=== PATIENT | female | born 1970 | race Caucasian/White ===

== ENCOUNTER → 2016-12-03 | Outpatient (CLI) | payer BC ==
--- NOTE | 2016-12-03 09:28 | DIAGNOSTIC IMAGING REPORT ---
ULTRASOUND OF THE THYROID GLAND CLINICAL HISTORY: Right-sided neck swelling. COMPARISON STUDY: No priors. TECHNIQUE: Real-time, grayscale, and color flow sonography of the thyroid gland is performed utilizing a high-frequency linear transducer. Images are reviewed in the transverse and longitudinal planes. FINDINGS: Right lobe: The right lobe of the thyroid gland is normal in size and homogeneous in echotexture, measuring 5.3 x 1.2 x 1.6 cm. Left lobe: The left lobe of the thyroid gland is normal in size and homogeneous in echotexture, measuring 4.8 x 1.1 x 1.3 cm. Isthmus: The thyroid isthmus is normal in appearance and measures 0.2 cm in AP diameter. IMPRESSION: Unremarkable sonographic assessment of the thyroid gland. Electronically signed by: Tye Zuluaga M.D. 12/03/2016 9:27 AM Dictated Date/Time: 12/03/2016 9:25 AM
== END | disposition home or self-care (01) ==
LOC: C.ULTR 08:53
PROVIDERS: ATTEND Family Medicine
DX: M54.2 Cervicalgia (principal)

== ENCOUNTER → 2017-02-02 | Outpatient (CLI) | payer BC ==
--- NOTE | 2017-02-02 16:05 | DIAGNOSTIC IMAGING REPORT ---
PELVIC ULTRASOUND CLINICAL HISTORY: Uterine pain. Abnormal bleeding. IUD placement. COMPARISON STUDY: No previous studies for comparison. TECHNIQUE: Transabdominal and transvaginal sonography of the pelvis was performed. FINDINGS: The uterus measures 7.7 x 6.2 x 3.6 cm. Endometrium measures 4 mm in thickness. IUD is appropriately positioned by sonography. The right ovary is normal, measuring 2.4 x 1.6 x 1.7 cm. The left ovary measures 3 x 1.9 x 1.8 cm contains a 1.4 cm complex cyst. There is color flow within each ovary. IMPRESSION: 1. Appropriately positioned IUD by sonography. 2. No significant abnormality within the pelvis by sonography. 3. 1.2 cm left ovarian lesion suggestive of a hemorrhagic/corpus luteal cyst. Electronically signed by: Conner Ventura M.D. 02/02/2017 4:03 PM Dictated Date/Time: 02/02/2017 4:02 PM
== END | disposition home or self-care (01) ==
LOC: C.ULTR 15:07
PROVIDERS: ATTEND Nurse Practitioner Family
DX: N93.8 Other specified abnormal uterine and vaginal bleeding (principal); Z30.431 Encounter for routine checking of intrauterine contraceptive device; N83.202 Unspecified ovarian cyst, left side; N92.1 Excessive and frequent menstruation with irregular cycle

== ENCOUNTER → 2017-02-11 | Outpatient (CLI) | payer BC ==
[2017-02-15 01:44] LABS: CHLAMYDIA TRACH RNA*** NOT DETECTED (NOT DETECTED); GC (NEIS GONORRHOEAE)RNA** NOT DETECTED (NOT DETECTED)
== END | disposition home or self-care (01) ==
LOC: C.LABSPEC 15:21
PROVIDERS: ATTEND Physician Assistant
DX: N92.1 Excessive and frequent menstruation with irregular cycle (principal)

== ENCOUNTER 2017-03-13 02:07 | Emergency (ER) | payer BC ==
[~2017-03-13] VITALS: Ht 185.4 cm; Wt 73.0 kg
[2017-03-13 02:12] VITALS: TEMP 36.8; Ht 185.4 cm; Wt 73.0 kg
[2017-03-13] MEDS ORDERED: IBUPROFEN 600 MG TAB PO STA (02:18)
--- NOTE | 2017-03-13 02:55 | EMERGENCY ROOM VISIT NOTE ---
ED Visit Note First contact with patient: 02:14 CHIEF COMPLAINT: Foot pain HISTORY OF PRESENT ILLNESS: This 46 yo patient presents to the emergency department with friend complaining of swelling and pain in the left foot at rest and worse with weight bearing. The patient twisted it when getting out of bed today . The patient rates the pain as throbbing and 5/10. The patient has had nothing relief of the pain. The patient is able to walk. No numbness or weakness. No ankle pain. There are no lacerations of the foot. The patient is able to move all of their toes and their ankle without pain. no previous fracture to this foot. REVIEW OF SYSTEMS: GENERAL: A 6 system review of systems was completed with positives and pertinent negatives in the HPI. ALLERGIES: none MEDICATIONS: Singulair, reviewed PMH: Asthma SOCIAL HISTORY: No Drug use PHYSICAL EXAM: Vital Signs: Reviewed Nurse's notes, vital signs stable. GENERAL : Pleasant female, in no acute distress, but appears in pain, well-developed, well-nourished. MUSCULOSKELATAL: There is no visual deformity of the left foot. There is no erythema + ecchymosis. There is no warmth. There is tenderness and swelling over the lateral aspect of the left foot. There is no tenderness over the lateral or medial malleolus. No tenderness of the tib/fib. The range of motion of the foot is not limited secondary to pain. There is no tenderness over the plantar fascia. The skin is intact and there are no lacerations or puncture wounds. Dorsalis pedis pulse 2+. Capillary refill less than 2 seconds. EMERGENCY DEPARTMENT COURSE: I examined the patient. An X-ray of the left foot was reviewed by myself and my Attending and reveals a avulsion fracture to the cuboid bone per my interpretation. The patient was placed in Ortho-Glass posterior splint and instructed on the use of crutches. Neurovascular status was rechecked after placement and is intact. Patient was advised to follow-up with orthopedics in a few days or here in the ER sooner for severe pain, numbness, tingling, worsening signs or symptoms or as needed. The patient was discharged home in good condition. DIAGNOSIS: #1 avulsion fracture to the cuboid bone left foot TREATMENT: Ibuprofen(Motrin, Advil) may be used for fever or pain. Use 600mg every six hours as needed. Take with food. Avoid using more than 2400mg in a 24 hour period. Do not use 2400mg per day for more than three consecutive days without physician direction. Prolonged inappropriate use can lead to stomach upset or ulcers. This medication can be taken if you need to drive, work, or perform activities which may be dangerous when taking narcotic pain medication. (AND/OR) Acetaminophen(Tylenol) may be used for fever or pain. Use 1000mg every six hours as needed. Avoid using more than 3000mg in a 24 hour period. This medication can be taken if you need to drive, work, or perform activities which may be dangerous when taking narcotic pain medication. Ice compresses for 20 minutes at a time four times daily for 2-3 days. Use the crutches as instructed. Rest and elevate your injury. Do not get the splint wet. If your splint feels excessively tight, you have worsening pain, develop numbness or tingling, or your digits appear blue, loosen the carmen wrap. Then reapply the carmen wrap gently without removing the splint. If your symptoms are not quickly relieved return to the ER for re- evaluation. Continue current medications. Return to the ER immediately for any numbness, tingling, severe pain, extreme swelling in the extremity or as needed. Call Orthopedics tomorrow to arrange follow up for your injury. Vital Signs Date Time Temp Pulse Resp B/P (MAP) Pulse Ox O2 Delivery O2 Flow Rate FiO2 03/13/17 02:12 36.8 95 18 112/75 96 Room Air Medications Administered Medications (Trade) Dose Ordered Sig/Yoselin Route Start Time Stop Time Status Last Admin Dose Admin Ibuprofen (Motrin Tab) 600 mg NOW STAT PO 03/13/17 02:18 03/13/17 02:19 DC 03/13/17 02:28 600 MG Departure Information Referrals Kristen Easley M.D. (PCP) Patient Instructions My [facility]
[2017-03-13 03:18] VITALS: BP 119/73; PULSE 92; O2SAT 96
--- NOTE | 2017-03-13 07:22 | DIAGNOSTIC IMAGING REPORT ---
LEFT FOOT MIN 3 VIEWS ROUTINE CLINICAL HISTORY: Left foot pain following injury. COMPARISON: None FINDINGS: The tarsometatarsal joints are intact. There is a lucency within the lateral distal aspect of the cuboid. This favors an acute nondisplaced fracture. No additional fractures within the left foot are present. IMPRESSION: Lucency within the lateral aspect of the cuboid. An acute nondisplaced fracture is favored. Electronically signed by: Conner Ventura M.D. 03/13/2017 7:20 AM Dictated Date/Time: 03/13/2017 7:18 AM
== END 2017-03-13 03:21 | disposition home or self-care (01) ==
LOC: C.EDB 02:08 → C.EDA 03:21
DX: S92.215A Nondisplaced fracture of cuboid bone of left foot, initial encounter for closed fracture (principal); X50.1XXA Overexertion from prolonged static or awkward postures, initial encounter; J45.909 Unspecified asthma, uncomplicated; Z79.899 Other long term (current) drug therapy

== ENCOUNTER → 2017-07-26 | Outpatient (CLI) | payer OTHER ==
--- NOTE | 2017-07-26 09:22 | DIAGNOSTIC IMAGING REPORT ---
(RENAL)RETROPERITON COMP HISTORY: 46 years-old Female HEMATURIA acute hematuria. COMPARISON: None available TECHNIQUE: Multiple real-time sonographic images of the kidneys and urinary bladder were obtained assessing grayscale appearance and color flow. FINDINGS: The right kidney measures 12.1 x 4.7 x 6.3 cm. Hypoechoic partially exophytic lesion of the superior pole right kidney measuring up to 1.2 cm suggests renal cyst. No renal calculi or hydronephrosis. The left kidney measures 12.5 x 5.3 x 5.7 cm demonstrates no renal calculi or hydronephrosis. Hypoechoic partially osteophytic lesion of the lower pole left kidney is seen measuring up to 0.9 cm which may also reflect a renal cyst. Urinary bladder is unremarkable with bilateral ureteral jets documented. Mild post void residual noted within the urinary bladder lumen. Uterus appears to be anteflexed. IMPRESSION: 1. No renal calculi or hydronephrosis identified. 2. Unremarkable sonographic appearance of the urinary bladder. The above report was generated using voice recognition software. It may contain grammatical, syntax or spelling errors. Electronically signed by: Kelvin Sanford M.D. 07/26/2017 9:21 AM Dictated Date/Time: 07/26/2017 9:18 AM
== END | disposition home or self-care (01) ==
LOC: C.ULTR 08:38
PROVIDERS: ATTEND Family Medicine
DX: R31.9 Hematuria, unspecified (principal); N39.0 Urinary tract infection, site not specified